=== PATIENT | female | born 1990 | race Caucasian/White ===

== ENCOUNTER 2016-11-08 19:26 | Emergency (ER) | payer OTHER ==
[~2016-11-08] VITALS: Ht 157.5 cm; Wt 93.0 kg
[2016-11-08 19:27] VITALS: BP 160/98; PULSE 118; RESP 15; TEMP 98.4; O2SAT 98
[2016-11-08] MEDS ORDERED: BENA25CA4 PO (22:11)
[2016-11-08 23:05] LABS: AUTOMATED NEUTROPHIL # 6.7 TH/MM3 (1.8-7.7); BASOPHIL % 0.4 % (0.0-2.0); EOSINOPHIL # 0.3 TH/MM3 (0-0.4); EOSINOPHIL % 2.9 % (0.0-4.0); HEMATOCRIT 36.1 % (35.0-46.0); HEMO FLAGS DIFF FINAL; LYMPH % 19.8 % (9.0-44.0); LYMPHOCYTE # 1.9 TH/MM3 (1.0-4.8); MEAN CELL VOLUME 78.1 FL (80.0-100.0); MEAN CORPUSCULAR HEMOGLOBIN 25.3 PG (27.0-34.0); MEAN CORPUSCULAR HGB CONC 32.4 % (32.0-36.0); MONO % 7.6 % (0.0-8.0); NEUT % 69.3 % (16.0-70.0); PLATELET COUNT 228 TH/MM3 (150-450); RED BLOOD COUNT 4.62 MIL/MM3 (4.00-5.30); RED CELL DISTRIBUTION WIDTH 13.9 % (11.6-17.2); WHITE BLOOD COUNT 9.6 TH/MM3 (4.0-11.0)
[2016-11-08 23:07] LABS: BACTERIA, URINE RARE /hpf; BLOOD, URINE SMALL (NEG); COMMENT (UR) CULTURE INDICATED; CULTURE IF INDICATED CULTURE INDICATED; GLUCOSE,URINE NEG (NEG); KETONE, URINE NEG (NEG); MUCUS URINE FEW /lpf (OCC); NITRITE,URINE NEG (NEG); SQUAMOUS EPITHELIAL CELL URINE 2 /hpf (0-5); URINE COLOR YELLOW (YELLW/STRAW)
--- NOTE | 2016-11-08 23:07 | PD ---
HPI Chief Complaint: Vending Route Servicer Problem/Complaint Time Seen by Provider: 22:35 Travel History International Travel<30 days: No Contact w/Intl Traveler<30days: No Traveled to known affect area: No History of Present Illness HPI 26-year-old female that presents to the ED for evaluation of with vaginal bleeding. Per patient she is about 7-9 weeks . Per patient since yesterday she noted some light bleeding but today became more severe. Per patient now is more spotting but she did have significantly and she was concerned. She denies any other vaginal discharge. This is her second . Only past surgery of the abdomen was her appendix. She denies any chest pain. She states having some lower pelvic pain which attributes to gas. She has no allergies to medication. She has not had an ultrasound as of yet. Per patient she just made an appointment with a doctor they won't see her until a week from today. She denies taking any medications. She denies possibility of STD. She states the discomfort is 4 out of 10. Does not radiate and stays mainly on the lower abdomen. No nausea or vomiting. PFSH Past Medical History Asthma: Yes Tetanus Vaccination: < 5 Years Influenza Vaccination: No ?: : 1 Para: 1 Past Surgical History Appendectomy: Yes Social History Alcohol Use: No Tobacco Use: No Substance Use: No Allergies-Medications (Allergen,Severity, Reaction): Coded Allergies: No Known Allergies (Verified Allergy, Unknown, 11/08/16) Reported Meds & Prescriptions Reported Meds & Active Scripts Active Reported Benadryl Allergy (Diphenhydramine HCl) 25 Mg Cap 25 Mg PO Review of Systems Except as stated in HPI: all other systems reviewed are Neg Physical Exam Narrative GENERAL: SKIN: Warm and dry. HEAD: Atraumatic. Normocephalic. EYES: Pupils equal and round. No scleral icterus. No injection or drainage. ENT: No nasal bleeding or discharge. Mucous membranes pink and moist. NECK: Trachea midline. No JVD. CARDIOVASCULAR: Regular rate and rhythm. RESPIRATORY: No accessory muscle use. Clear to auscultation. Breath sounds equal bilaterally. GASTROINTESTINAL: Abdomen soft, non-tender, nondistended. Hepatic and splenic margins not palpable. Pelvic exam: Done with female nurse present. Patient does have some slight edition initial discharge, from the clitoris were no obvious sign of bleeding. No sign of deformity noted. Cervix appears to be closed. No cervical motion tenderness. No adnexal tenderness. MUSCULOSKELETAL: Extremities without clubbing, cyanosis, or edema. No obvious deformities. Full range of motion of the upper and lower extremities bilaterally. 2+ pulses bilaterally. NEUROLOGICAL: Awake and alert. No obvious cranial nerve deficits. Motor grossly within normal limits. Five out of 5 muscle strength in the arms and legs. Normal speech. PSYCHIATRIC: Appropriate mood and affect; insight and judgment normal. Data Data Last Documented VS Vital Signs Date Time Temp Pulse Resp B/P (MAP) Pulse Ox O2 Delivery O2 Flow Rate FiO2 11/08/16 19:27 98.4 118 15 160/98 (118) 98 Room Air Orders Orders Beta Hcg (Quant/Titer) (11/08/16 22:39) Complete Blood Count With Diff (11/08/16 22:39) Basic Metabolic Panel (Bmp) (11/08/16 22:39) Type And Screen (11/08/16 22:39) Urinalysis - C+S If Indicated (11/08/16 22:39) Iv Access Insert/Monitor (11/08/16 22:39) Ed Urine Pregnancytest Poc (11/08/16 22:39) Us Pelvis (Ques Pr/Ect)W Trans (11/08/16 ) Wet Prep Profile (11/08/16 22:56) Labs Laboratory Tests Test 11/08/16 22:47 [facility] Medical Decision Making Medical Screen Exam Complete: Yes Emergency Medical Condition: Yes Medical Record Reviewed: Yes Differential Diagnosis Vaginal discharge versus vaginal bleeding versus miscarriage versus ectopic versus versus bleeding during Narrative Course 26-year-old female that presents to the ED for evaluation of vaginal bleeding and . Patient was properly examined and was found to have signs and symptoms concerning for possible miscarriage. On physical exam she does appear to have some discharge and this can be normal from her menses but will do wet prep as well as GC and chlamydia. Labs were drawn. Case will be signed out to my attending pending labs and disposition. Christopher Pelletier Nov 08, 2016 23:07
[2016-11-08 23:26] LABS: POTASSIUM 3.6 MEQ/L (3.5-5.1)
--- NOTE | 2016-11-08 23:36 | PD ---
Physical Exam Date Seen by Provider: Nov 08, 2016 Time Seen by Provider: 23:34 Narrative accepted in transfer of care Data Data Last Documented VS Vital Signs Date Time Temp Pulse Resp B/P (MAP) Pulse Ox O2 Delivery O2 Flow Rate FiO2 11/08/16 23:38 84 20 116/69 (85) 98 Room Air 11/08/16 19:27 98.4 Orders Orders Beta Hcg (Quant/Titer) (11/08/16 22:39) Complete Blood Count With Diff (11/08/16 22:39) Basic Metabolic Panel (Bmp) (11/08/16 22:39) Type And Screen (11/08/16 22:39) Urinalysis - C+S If Indicated (11/08/16 22:39) Iv Access Insert/Monitor (11/08/16 22:39) Ed Urine Pregnancytest Poc (11/08/16 22:39) Wet Prep Profile (11/08/16 22:56) Urine Culture (11/08/16 22:47) Gc And Chlamydia Pcr (11/08/16 23:14) Us Pelvis (Ques Preg/Ectopic) (11/08/16 ) Cephalexin (Keflex) (11/09/16 01:15) Labs Laboratory Tests Test 11/08/16 22:47 11/08/16 22:55 11/08/16 23:00 White Blood Count 9.6 TH/MM3 Red Blood Count 4.62 MIL/MM3 Hemoglobin 11.7 GM/DL Hematocrit 36.1 % Mean Corpuscular Volume 78.1 FL Mean Corpuscular Hemoglobin 25.3 PG Mean Corpuscular Hemoglobin Concent 32.4 % Red Cell Distribution Width 13.9 % Platelet Count 228 TH/MM3 Mean Platelet Volume 8.0 FL Neutrophils (%) (Auto) 69.3 % Lymphocytes (%) (Auto) 19.8 % Monocytes (%) (Auto) 7.6 % Eosinophils (%) (Auto) 2.9 % Basophils (%) (Auto) 0.4 % Neutrophils # (Auto) 6.7 TH/MM3 Lymphocytes # (Auto) 1.9 TH/MM3 Monocytes # (Auto) 0.7 TH/MM3 Eosinophils # (Auto) 0.3 TH/MM3 Basophils # (Auto) 0.0 TH/MM3 CBC Comment DIFF FINAL Differential Comment Urine Color YELLOW Urine Turbidity HAZY Urine pH 6.0 Urine Specific [place] 1.021 Urine Protein NEG mg/dL Urine Glucose (UA) NEG mg/dL Urine Ketones NEG mg/dL Urine Occult Blood SMALL Urine Nitrite NEG Urine Bilirubin NEG Urine Urobilinogen LESS THAN 2.0 MG/DL Urine Leukocyte Esterase LARGE Urine RBC 3 /hpf Urine WBC 24 /hpf Urine Squamous Epithelial Cells 2 /hpf Urine Amorphous Sediment RARE Urine Bacteria RARE /hpf Urine Mucus FEW /lpf Microscopic Urinalysis Comment CULTURE INDICATED Blood Urea Nitrogen 7 MG/DL Creatinine 0.58 MG/DL Random Glucose 95 MG/DL Calcium Level 9.2 MG/DL Sodium Level 135 MEQ/L Potassium Level 3.6 MEQ/L Chloride Level 103 MEQ/L Carbon Dioxide Level 25.0 MEQ/L Anion Gap 7 MEQ/L Estimat Glomerular Filtration Rate 126 ML/MIN Human Chorionic Gonadotropin, Quant 39781 MIU/ML Chlamydia trachomatis DNA (PCR) NOT DETECTED Neisseria gonorrhoeae DNA (PCR) NOT DETECTED Clue Cells (Wet Prep) NONE SEEN Vaginal Trichomonas (Wet Prep) NONE SEEN Vaginal Yeast (Wet Prep) NONE SEEN MDM Medical Record Reviewed: Yes Supervised Visit with CAMMY: Yes Interpretation(s) UA: Positive leukocyte Estrace positive white blood cells few bacteria culture indicated poc hcg: positive A(+) hc,112 CBC & BMP Diagram 11/08/16 22:47 Calcium Level 9.2 Last Impressions Pelvis Ultrasound 11/08/16 0000 Signed Impressions: Service Date/Time: Sunday, November 08, 2016 23:51 - CONCLUSION: 1. 7 week one day intrauterine gestation with heart rate of 137 beats per minute. 2. Corpus luteal cyst involving the left ovary. Pee Dunne Jr., MD Vital Signs Date Time Temp Pulse Resp B/P (MAP) Pulse Ox O2 Delivery O2 Flow Rate FiO2 11/08/16 23:38 84 20 116/69 (85) 98 Room Air 11/08/16 19:27 98.4 118 15 160/98 (118) 98 Room Air Differential Diagnosis Vaginal bleeding, threatened miscarriage, ectopic , UTI Narrative Course 26 year-old female presents to the emergency room with vaginal bleeding; pelvic exam pelvic exam performed by Thomas Burton. No active bleeding no blood clots no tissue greenish discharge cervical os closed Diagnosis Primary Impression: Vaginal bleeding before 22 weeks gestation Additional Impressions: Qualified Codes: Z3A.01 - Less than 8 weeks gestation of UTI (urinary tract infection) Referrals: Technology Instructor 2 days Patient Instructions: General Instructions Departure Forms: Tests/Procedures, Work Release Additional Instruction: Increase fluid hydration Follow-up with your [employer] Continue vitamins Recheck quantitative hormone level and 48 hours Complete course of antibiotic as prescribed May take as needed as tolerated acetaminophen/Tylenol for fever 100.4F or greater or for minor discomfort No work or lifting greater than 5 pounds 2 days Med/Other Pt SpecificInfo: Prescription(s) given Scripts Cephalexin (Keflex) 500 Mg Capsule 500 MG PO Q6H for Infection for 7 Days, #28 CAP 0 Refills Prov: Alayna Perez MD 11/09/16 Disposition: 01 DISCHARGE HOME Condition: Stable Alayna Perez MD Nov 08, 2016 23:36
[2016-11-08 23:38] VITALS: BP 116/69; PULSE 84; RESP 20; O2SAT 98
--- NOTE | 2016-11-09 00:44 | RADRPT ---
EXAM DATE/TIME: 11/08/2016 23:51 [facility] COMPARISON: No previous studies available for comparison. INDICATIONS : Ectopic. LAB(S): Beta-hC MEDICAL HISTORY : . Asthma. SURGICAL HISTORY : Appendectomy. ENCOUNTER: Initial ACUITY: 1 day PAIN SCORE: 0/10 LOCATION: Bilateral pelvis MEASUREMENTS: UTERUS: 9.4 x 6.1 x 4.8 cm ENDOMETRIAL STRIPE: 13 mm RIGHT OVARY: 3.1 x 2.6 x 1.8 cm LEFT OVARY: 3.1 x 3.4 x 2.0 cm FREE FLUID: No CROWN RUMP LENGTH: 1.0 cm = 7 WKS 1 DAYS FHR: 140 BPM FINDINGS: UTERUS: A solitary intrauterine gestation is observed. Age by crown-rump length is 7 weeks one day. hea rt rate is 137 beats per minute. A small subchorionic hemorrhage is seen. The myometrium is unremarka ble. A well-formed yolk sac and gestational sac noted. RIGHT OVARY: Ovary contains no mass or significant cystic lesion. LEFT OVARY: The left ovary contains a mildly complex cyst measuring 1.6 cm in size. MISCELLANEOUS: No free fluid. CONCLUSION: 1. 7 week one day intrauterine gestation with heart rate of 137 beats per minute. 2. Corpus luteal cyst involving the left ovary. Pee Dunne Jr., MD on November 09, 2016 at 0:40 Board Certified Radiologist. This report was verified electronically.
[2016-11-09 00:58] LABS: CHLAMYDIA PCR NOT DETECTED (NOT DETECT); NEISSERIA PCR NOT DETECTED (NOT DETECT)
[2016-11-09] MEDS ORDERED: CEPH-460 PO (01:15)
[2016-11-09] MEDS ORDERED: CEPHALEXIN MONOHYDRATE 500 MG CAP PO ONE (01:15)
[2016-11-15] MEDS ORDERED: PREN1CHW7 PO (15:36)
[2016-11-16] MEDS ORDERED: ONDA4TAB7 SL (13:11)
[2016-11-21] MEDS ORDERED: METR500T10 PO (14:50)
[2016-12-13] MEDS ORDERED: ONDA4TAB7 SL (11:20)
== END 2016-11-09 01:32 | disposition home or self-care (01) ==
LOC: NEPC 19:26
DX: O20.9 Hemorrhage in early pregnancy, unspecified (principal); O23.41 Unspecified infection of urinary tract in pregnancy, first trimester; B96.89 Other specified bacterial agents as the cause of diseases classified elsewhere; Z3A.01 Less than 8 weeks gestation of pregnancy
CPT/HCPCS: 76700; 80048; 81001; 84702; 84703; 85025; 86850; 86900; 86901; 87086; 87210; 87491; 87591; 99284

== ENCOUNTER → 2017-05-21 | Outpatient (CLI) | payer OTHER ==
[~2017-05-21] MED LIST: ALBUAER3 INH; BENA25CA4 PO; ONDA4TAB7 SL; PREN1CHW7 PO; ZANT150T2 PO
== END ==
LOC: HPND 09:50
PROVIDERS: ATTEND Obstetrics & Gynecology
DX: O24.410 Gestational diabetes mellitus in pregnancy, diet controlled (principal); O36.63X0 Maternal care for excessive fetal growth, third trimester, not applicable or unspecified; O99.213 Obesity complicating pregnancy, third trimester; E66.09 Other obesity due to excess calories; Z68.39 Body mass index [BMI] 39.0-39.9, adult
CPT/HCPCS: 76816

== ENCOUNTER 2017-06-15 10:33 | Inpatient (IN) | payer OTHER ==
[2017-06-15] VITALS (82 sets, daily range): BP systolic 87–145; BP diastolic 53–88; PULSE 72–116; RESP 16–18; TEMP 97.9–98.5; O2SAT 94–100
[2017-06-15] MEDS ORDERED: LACTATED RINGER'S 1000 ML INJ 1,000 ML IV SCH ×2 (11:34→23:37)
[2017-06-15] MEDS ORDERED: LACTATED RINGER'S 1000 ML INJ 1,000 ML IV PRN (11:34)
[2017-06-15] MEDS ORDERED: ONDANSETRON HCL 4 MG/2 ML VIAL IV PUSH PRN (11:45)
[2017-06-15] MEDS ORDERED: MINERAL OIL 10 ML VIAL TOPICAL PRN (11:45)
[2017-06-15] MEDS ORDERED: LIDOCAINE HCL 1% 50 ML VIAL INFIL PRN (11:45)
[2017-06-15] MEDS ORDERED: OXYTOCIN 30 UNITS-500ML PREMIX 500 ML IV ONE (11:45)
[2017-06-15] MEDS ORDERED: SODIUM CHLORID 0.9% 500 ML INJ 500 ML IV PRN (11:45)
[2017-06-15] MEDS ORDERED: CITRIC ACID-SODIUM CITRATE LIQ 30 ML UDC PO SCH (11:45)
[2017-06-15] MEDS ORDERED: LIDOCAINE HCL 1% 50 ML VIAL I-DERMAL PRN (11:45)
--- NOTE | 2017-06-15 11:47 | HHI.HP ---
History & Physical H&P OB ED Note (Detail) Patient Name: Malissa Barker Unit Number: [id number] Date of : 1990 Patient Status: Registered Emergency Room Attending Doctor: Dean Galindo MD HPI HPI Travel History International Travel<30 Days: No Contact w/Intl Traveler<30Days: No History of Present Illness HPI 27-year-old female 001 at 38/3 of asthma and gestational diabetes controlled with diet presents to the ED with leakage of fluid. She is a patient of [facility]. She reports that she had a gush of fluid at 9:30 AM this morning. She started to feel some contractions but not sure how far apart they were. Endorses good movement. She denies vaginal bleeding, chest pain, shortness of breath. She reports that she uses her albuterol oral inhaler as needed, she states that she uses it over 14 times per month. She reports that her last was vacuum-assisted. Her last child was over 9 pounds. She had an ultrasound 1 week ago and the baby was measuring about 9 pounds. She is requesting that we do not do vacuum-assisted at this delivery. She is okay to have a if needed. GBS negative History (Limited) History Past Medical History Narrative Medical Asthma, takes albuterol as needed Gestational diabetes controlled with diet Obstetric History Obstetric History 001, vacuum-assisted vaginal delivery Past Surgical History Narrative Surgical Appendectomy Family History Family History: Negative Social History Alcohol Use: No Tobacco Use: No Substance Abuse: No Allergies-Medications Allergies-Medications (Allergen,Severity, Reaction): Coded Allergies: No Known Allergies (Verified , 03/07/17) Home Meds Active Scripts Ondansetron Odt (Ondansetron Odt) 4 Mg Tab, 4 MG SL TID Y for Nausea/Vomiting, # 30 TAB 0 Refills Prov:Frida Herbert 03/07/17 Ranitidine (Zantac) 150 Mg Tab, 150 MG PO BID for Reduce Stomach Acid, #60 TAB 7 Refills Prov:Frida Herbert 02/06/17 Albuterol 8.5 GM Inh (Proair Hfa 8.5 GM Inh) 90 Mcg/Act Aer, 2 PUFF INH Q4-6H Y for SHORTNESS OF BREATH, #1 INHALER 1 Refill 108 mcg/actuation Prov:Hadley Gonzalezinta JanelKaren JOHNS [facility] 01/09/17 Vit W/ Ferric Phospha (Vitafol Gummies 3.33-0.333-34.8 mg) 1 Chw Chw, 3 TAB PO DAILY, #90 BOTTLE 11 Refills Prov:Frida Herbert [facility] 11/15/16 Reported Medications Diphenhydramine HCl (Benadryl Allergy) 25 Mg Cap, 25 MG PO 11/08/16 ROS Review of Systems Except as stated in HPI: all other systems reviewed are Neg Physical Exam Physical Exam Narrative GENERAL: Well-nourished, well-developed patient. SKIN: Warm and dry. HEAD: Normocephalic and atraumatic. EYES: No scleral icterus. No injection or drainage. ENT: No nasal drainage noted. Mucous membranes pink. Airway patent. NECK: Supple, trachea midline. No JVD. CARDIOVASCULAR: Regular rate and rhythm without murmurs, gallops, or rubs. RESPIRATORY: Breath sounds equal bilaterally. No accessory muscle use. ABDOMEN/GI: Abdomen soft, non-tender, bowel sounds present, no rebound, no guarding GENITOURINARY: Cervix: midposition Dilatation: 3 Effacement: 20 Station: -2 Presentation: - Membranes: ruptured Uterine Contractions: every 5 min FHT's: Category: 1 Baseline: 130s Reactive: yes Variability: moderate Decels: none EXTREMITIES: No cyanosis or edema. BACK: Nontender without obvious deformity. NEUROLOGICAL: Awake and alert. Motor and sensory grossly within normal limits. Five out of 5 muscle strength in all muscle groups. Normal speech. Data Data Data Vital Signs Reviewed: Yes Orders Orders Ob (2e) Additional Admit Info (06/15/17 11:31) Admit To Inpatient (06/15/17 ) Code Status (06/15/17 11:34) Vital Signs (Adult) .Per protocol (06/15/17 11:34) Activity Oob Ad Celi (06/15/17 11:34) Heart (06/15/17 11:34) Amnioinfusion (06/15/17 11:34) Urinary Catheter Management .ONCE (06/15/17 11:34) Diet Liquid (06/15/17 Lunch) Lactated Ringer's 1000 Ml Inj (Lr 1000 M (06/15/17 11:34) Lactated Ringer's 1000 Ml Inj (Lr 1000 M (06/15/17 11:34) Sodium Chlorid 0.9% 500 Ml Inj (Ns 500 M (06/15/17 11:45) Sodium Chlor 0.9% 1000 Ml Inj (Ns 1000 M (06/15/17 11:54) Lidocaine 1% Inj (50 Ml) (Xylocaine 1% I (06/15/17 11:45) Citric Acid-Sodium Citrate Liq (Bicitra (06/15/17 11:45) Ondansetron Inj (Zofran Inj) (06/15/17 11:45) Fentanyl Inj (Fentanyl Inj) (06/15/17 11:45) Fentanyl Inj (Fentanyl Inj) (06/15/17 11:45) Complete Blood Count With Diff (06/15/17 11:34) Hold Clot (06/15/17 11:34) Abo/Rh Blood Type (06/15/17 11:34) Urinalysis - C+S If Indicated (06/15/17 11:34) Drug Screen, Random Urine (06/15/17 11:34) Ob/Psych Drug Screen, Urine (06/15/17 11:34) Resp Oxygen Non Rebreathe Mask (06/15/17 ) ^ Epidural / Intrathecal Infus (06/15/17 11:34) Oxytocin 30 Units-500ml Premix (Pitocin (06/15/17 11:45) Lidocaine 1% Inj (50 Ml) (Xylocaine 1% I (06/15/17 11:45) Light Mineral Oil (Muri-Lube Oil) (06/15/17 11:45) Inpatient Certification (06/15/17 ) Group B Strep: Negative MDM MDM Plan 27-year-old female at 38/3 weeks presents for leakage of fluid. -Intrauterine category 1, reassuring -Cervix: 3 cm, 20% effacement, -2, mid position -History of gestational diabetes controlled with diet -History of asthma, uses albuterol inhaler inhaler 14 times per month - labs obtained: Rubella equivocal, patient will need MMR after delivery -GBS negative -Will start Pitocin 1-1-30 -Admit to L&D sdw Daisha Yao MD R1 Jun 15, 2017 11:46 (Daisha Navas MD R1) H&P Patient seen and evaluated with resident under direct supervision, agree with assessment and plan. (Dean Galindo MD) Daisha Navas MD R1 Jun 15, 2017 11:47 Dean Galindo MD Jun 15, 2017 12:59
[2017-06-15] MEDS ORDERED: SODIUM CHLOR 0.9% 1000 ML INJ 1,000 ML IV PRN (11:54)
[2017-06-15] MEDS ORDERED: OXYTOCIN 30 UNITS-500ML PREMIX 500 ML IV PRN (12:00)
[2017-06-15 12:20] LABS: BASOPHIL % 0.5 % (0.0-2.0); EOSINOPHIL % 0.6 % (0.0-4.0); HEMOGLOBIN 8.6 GM/DL (11.6-15.3); LYMPH % 16.5 % (9.0-44.0); LYMPHOCYTE # 1.1 TH/MM3 (1.0-4.8); MEAN CELL VOLUME 63.9 FL (80.0-100.0); MEAN CORPUSCULAR HEMOGLOBIN 21.1 PG (27.0-34.0); MEAN CORPUSCULAR HGB CONC 33.1 % (32.0-36.0); MEAN PLATELET VOLUME 7.8 FL (7.0-11.0); MONO % 8.1 % (0.0-8.0); MONOCYTE # 0.5 TH/MM3 (0-0.9); NEUT % 74.3 % (16.0-70.0); PLATELET COUNT 235 TH/MM3 (150-450); RED BLOOD COUNT 4.06 MIL/MM3 (4.00-5.30); RED CELL DISTRIBUTION WIDTH 17.5 % (11.6-17.2); WHITE BLOOD COUNT 6.7 TH/MM3 (4.0-11.0)
[2017-06-15 12:38] LABS: BACTERIA, URINE OCC /hpf; BILIRUBIN, URINE NEG (NEG); BLOOD, URINE SMALL (NEG); GLUCOSE,URINE NEG (NEG); KETONE, URINE NEG (NEG); MUCUS URINE FEW /lpf (OCC); NITRITE,URINE NEG (NEG); SQUAMOUS EPITHELIAL CELL URINE 10 /hpf (0-5); URINE COLOR YELLOW (YELLW/STRAW); URINE LEUKOCYTE ESTERASE MOD (NEG)
[2017-06-15] MEDS ORDERED: fentaNYL 2MCG-BUPIV 0.125% INJ 100 ML ONE (17:02)
[2017-06-15] MEDS ORDERED: ePHEDrine/NS 25 MG/5 ML SYRINGE ONE (17:02)
--- NOTE | 2017-06-15 17:13 | PD.LABORPN ---
Subjective Subjective Notes increased ctxs. Desires epidural. Objective Vital Signs Vital Signs Date Time Temp Pulse Resp B/P (MAP) Pulse Ox O2 Delivery O2 Flow Rate FiO2 06/15/17 15:27 98.5 16 06/15/17 15:16 100 103/75 (84) 06/15/17 15:00 88 115/72 (86) 06/15/17 14:52 82 121/70 (87) 06/15/17 14:00 16 06/15/17 14:00 87 120/67 (84) 06/15/17 13:45 96 117/68 (84) 06/15/17 13:30 88 118/77 (91) 06/15/17 13:15 81 116/61 (79) 06/15/17 13:00 85 114/71 (85) 06/15/17 12:45 92 121/68 (85) 06/15/17 12:30 90 117/74 (88) 06/15/17 12:28 93 122/73 (89) 06/15/17 11:59 98.1 06/15/17 11:58 18 Objective Pelvic Exam: Cervix: [-] Dilatation: [4-] Effacement: [80-] Station: [-3-] Presentation: [-vtx] Membranes: [ ruptured] Uterine Contractions: [irreg-] FHT's: Category: [1-] Baseline: [-] Reactive: [-] Variability: [-] Decels: [-] Gest Age Assessed Date: Jun 15, 2017 Gest Age Assessed Time: 11:13 Artificial rupture of membrane: No Assessment/Plan Assessment and Plan A: latent labor P: continue pit augment. epidural Dean Galindo MD Jun 15, 2017 17:13
[2017-06-15] MEDS ORDERED: LIDOCAINE HCL 1% PF 5 ML AMPULE ONE ×2 (17:25→20:06)
[2017-06-15] MEDS ORDERED: LIDOCAINE 1.5%/EPINEPHrine 1:200,000 PF SOLN 10ML SDV ONE (17:28)
[2017-06-15] MEDS ORDERED: ePHEDrine/NS 25 MG/5 ML SYRINGE IV PUSH PRN (19:30)
[2017-06-15] MEDS ORDERED: DO NOT ADMINISTER ANTICOAGULANTS PRN (19:30)
[2017-06-15] MEDS ORDERED: fentaNYL 2MCG-BUPIV 0.125% 100 ML EPIDURAL PRN (19:30)
[2017-06-15] MEDS ORDERED: NO SYSTEM NARCOTICS PRN (19:30)
[2017-06-15] MEDS ORDERED: LACTATED RINGER'S 1000 ML INJ 1,000 ML IV ONE (23:07)
[2017-06-15] MEDS ORDERED: ceFAZolin 2 GM PREMIX 50 ML ONE (23:09)
--- NOTE | 2017-06-15 23:15 | PD.LABORPN ---
Subjective Subjective Patient expresses that she is exhausted. She desires . Objective Vital Signs Vital Signs Date Time Temp Pulse Resp B/P (MAP) Pulse Ox O2 Delivery O2 Flow Rate FiO2 06/15/17 21:55 116 06/15/17 21:50 110 06/15/17 21:45 109 06/15/17 21:45 95 108/63 (78) 06/15/17 21:40 105 06/15/17 21:35 92 06/15/17 21:30 92 06/15/17 21:30 87 115/74 (88) 06/15/17 21:15 93 06/15/17 20:15 86 06/15/17 20:00 91 06/15/17 19:55 86 100 06/15/17 19:50 100 06/15/17 19:50 87 06/15/17 19:47 97.9 18 06/15/17 19:45 85 104/63 (77) 06/15/17 19:45 100 06/15/17 19:40 83 100 06/15/17 19:35 84 100 06/15/17 19:30 91 06/15/17 19:30 90 100 06/15/17 18:55 83 06/15/17 18:55 99/64 (76) 100 06/15/17 18:50 113/66 (82) 100 06/15/17 18:50 83 06/15/17 18:45 108/68 (81) 100 06/15/17 18:45 84 06/15/17 18:40 83 06/15/17 18:40 103/53 (70) 100 06/15/17 18:36 85 105/55 (72) 06/15/17 18:35 83 100 06/15/17 18:30 86 06/15/17 18:30 123/72 (89) 100 06/15/17 18:25 83 06/15/17 18:25 111/60 (77) 06/15/17 18:25 100 06/15/17 18:21 78 06/15/17 18:21 100/58 (72) 06/15/17 18:20 78 100 06/15/17 18:15 109/56 (73) 06/15/17 18:15 100 06/15/17 18:15 84 06/15/17 18:10 100 06/15/17 18:10 88 06/15/17 18:10 104/70 (81) 06/15/17 18:06 87/70 (76) 06/15/17 18:06 100 06/15/17 18:05 86 100 06/15/17 18:04 88 06/15/17 18:04 110/66 (81) 06/15/17 18:00 99 06/15/17 18:00 100 06/15/17 18:00 115/74 (88) 06/15/17 17:49 83 121/57 (78) 06/15/17 17:45 82 06/15/17 17:40 78 06/15/17 17:35 84 06/15/17 17:31 86 131/62 (85) 06/15/17 17:16 72 112/73 (86) 06/15/17 17:01 79 114/67 (83) 06/15/17 16:46 137/88 (104) 06/15/17 16:30 79 110/70 (83) 06/15/17 16:16 77 112/67 (82) 06/15/17 16:00 100 107/64 (78) 06/15/17 15:27 98.5 16 06/15/17 15:16 100 103/75 (84) Objective Pelvic Exam: Cervix: [-] Dilatation: [Complete] Effacement: [-100] Station: [-0] Presentation: [Vertex-] Membranes: [ruptured] Uterine Contractions: [-Adequate] FHT's: Category: [-2] Baseline: [-] Reactive: [-] Variability: [Moderate-] Decels: [-Variable] Gest Age Assessed Date: Jun 15, 2017 Gest Age Assessed Time: 11:13 Artificial rupture of membrane: No Assessment/Plan Assessment and Plan Assessment: Arrest of second stage labor, suspected macrosomia Plan: I discussed with patient the options of continuing her efforts at expulsion versus attempted operative vaginal delivery versus . She declines further maternal effort. She declines operative vaginal delivery and desires . Dean Galindo MD Jun 15, 2017 23:15
[2017-06-16] VITALS (13 sets, daily range): BP systolic 97–118; BP diastolic 55–68; PULSE 72–98; RESP 9–18; TEMP 97.7–98.9; O2SAT 96–99
[2017-06-16] MEDS ORDERED: ceFAZolin 2 GM PREMIX 50 ML IV SCH (00:15)
--- NOTE | 2017-06-16 00:31 | PD.OP ---
Operative Report Date of Surgery: Jun 16, 2017 Preoperative Diagnosis: arrest of second stage of labor, suspected macrosomia Postoperative Diagnosis: Same plus macrosomia Procedure: Primary lower uterine segment transverse section Patient was taken to the operating room after administration of a satisfactory level of her labor epidural was prepped and draped in dorsal supine position. The skin was incised transversely in the lower abdomen and the subcutaneous tissue was sharply dissected down to the level of the fascia which was nicked in midline extended bilaterally with scissors. Fascia was opened transversely and from the underlying muscle with sharp and blunt dissection. Peritoneum was bluntly entered. A transverse hysterotomy was made in the lower uterine segment. membranes were encountered and clear fluid noted. The vertex was elevated out of the pelvic inlet and delivered through the hysterotomy. With gentle traction and fundal pressure the remainder of the followed easily. Delayed cord clamping was accomplished. Cord blood sample was obtained. The baby was passed to the waiting attendants. The fundus was massaged and placenta passed spontaneously. The uterine cavity was wiped with a moist sponge. The hysterotomy was closed with the running suture of 0 Monocryl. Interrupted sutures were used as a second layer. After observing excellent hemostasis the posterior cul-de-sac and pericolic gutters were evacuated of fluid and blood. The fascia was then closed with #1 PDS. Subcutaneous tissue was closed with 3-0 Vicryl and the skin with 4-0 Vicryl suture and tissue glue. Anesthesia: Epidural Surgeon: Dean Galindo Manager Bar(s): Airam Schulz Operation and Findings: Normal-appearing tubes ovaries and uterus. 10 lbs. 7 oz. male infant 700 cc estimated blood loss No complications Sponge and instrument counts were correct 3 Dean Galindo MD Jun 16, 2017 00:31
[2017-06-16] MEDS ORDERED: KETOROLAC TROMETHAMINE 30 MG/ML (IVP) VIAL ONE (00:32)
[2017-06-16] MEDS ORDERED: CITRIC ACID-SODIUM CITRATE LIQ 30 ML UDC PO SCH (00:45)
[2017-06-16] MEDS ORDERED: ACETAMINOPHEN 1000 MG/100 ML 100 ML IV SCH (07:30)
[2017-06-16] MEDS ORDERED: OXYTOCIN 30 UNITS-500ML PREMIX 500 ML IV ONE (07:30)
[2017-06-16] MEDS ORDERED: ONDANSETRON HCL 4 MG/2 ML VIAL IV PUSH PRN (07:30)
[2017-06-16] MEDS ORDERED: SODIUM CHLORIDE 0.9% FLUSH 10 ML FLUSH IV FLUSH PRN (07:30)
--- NOTE | 2017-06-16 08:33 | HHI.OB ---
Subjective Post Operative Day: 1 Remarks Pt seen and examined this morning. day # 1 AFVSS overnight. Incision not draining. Decreased lochia. Denies dysuria. No breast tenderness. She is feeding the baby via breast. Appetite good. No nausea or vomiting. Patient has not yet had a bowel movement, but does endorse bowel gas. Ambulating well. Denies calf pain or shortness of breath. Otherwise, she is doing well this morning and has no other concerns. (Ziyad Leach MD R2) Remarks Patient seen and evaluated with resident under direct supervision, agree with assessment and plan. (Dean Galindo MD) Objective Vitals/I&O Vital Signs Date Time Temp Pulse Resp B/P (MAP) Pulse Ox O2 Delivery O2 Flow Rate FiO2 06/16/17 08:00 97.7 87 18 107/59 (75) 98 06/16/17 06:24 18 06/16/17 06:24 98.3 81 9 101/58 (72) 98 06/16/17 02:03 97.8 87 18 108/68 (81) 97 06/16/17 01:29 86 118/64 (82) 06/16/17 01:29 18 98 06/16/17 01:22 98.0 06/16/17 01:18 17 98 06/16/17 01:17 86 116/68 (84) 06/16/17 01:05 85 18 110/62 (78) 98 06/16/17 00:41 90 107/55 (72) 06/16/17 00:41 18 99 06/16/17 00:40 97.7 06/15/17 23:15 100 100 06/15/17 23:10 98 100 06/15/17 23:05 101 100 06/15/17 23:00 101 100 06/15/17 22:58 100 122/76 (91) 06/15/17 22:50 102 100 06/15/17 22:40 113 100 06/15/17 22:35 102 100 06/15/17 22:30 115 100 06/15/17 22:25 104 100 06/15/17 22:20 105 100 06/15/17 22:15 102 100 06/15/17 22:10 103 100 06/15/17 22:05 93 94 06/15/17 22:00 101 100 06/15/17 21:55 100 18 21:55 116 06/15/17 21:50 110 18 21:50 100 18 21:45 109 18 21:45 95 108/63 (78) 06/15/17 21:45 100 06/15/17 21:40 100 18 21:40 105 06/15/17 21:35 99 06/15/17 21:35 92 06/15/17 21:30 92 06/15/17 21:30 87 115/74 (88) 06/15/17 21:30 100 06/15/17 21:25 100 06/15/17 21:15 108/74 (85) 06/15/17 21:15 93 06/15/17 21:15 100 06/15/17 21:10 95 06/15/17 21:10 100 06/15/17 21:01 89 118/71 (87) 06/15/17 20:46 103 145/80 (101) 06/15/17 20:35 100 06/15/17 20:35 84 06/15/17 20:31 98.1 92 115/60 (78) 06/15/17 20:25 86 100 06/15/17 20:20 90 06/15/17 20:20 100 06/15/17 20:15 100 06/15/17 20:15 86 06/15/17 20:15 117/70 (86) 06/15/17 20:10 100 06/15/17 20:10 84 06/15/17 20:05 104 06/15/17 20:05 98 06/15/17 20:00 91 06/15/17 20:00 113/68 (83) 06/15/17 20:00 100 18 19:55 86 100 06/15/17 19:50 100 18 19:50 87 06/15/17 19:47 97.9 18 06/15/17 19:45 85 104/63 (77) 06/15/17 19:45 100 18 19:40 83 100 18 19:35 84 100 18 19:30 91 06/15/17 19:30 90 100 4/27/18 18:55 83 06/15/17 18:55 99/64 (76) 100 18 18:50 113/66 (82) 100 18 18:50 83 18 18:45 108/68 (81) 100 18 18:45 84 06/15/17 18:40 83 18 18:40 103/53 (70) 100 06/15/17 18:36 85 105/55 (72) 06/15/17 18:35 83 100 18 18:30 86 06/15/17 18:30 123/72 (89) 100 06/15/17 18:25 83 06/15/17 18:25 111/60 (77) 06/15/17 18:25 100 06/15/17 18:21 78 06/15/17 18:21 100/58 (72) 06/15/17 18:20 78 100 06/15/17 18:15 109/56 (73) 06/15/17 18:15 100 06/15/17 18:15 84 06/15/17 18:10 100 06/15/17 18:10 88 06/15/17 18:10 104/70 (81) 06/15/17 18:06 87/70 (76) 06/15/17 18:06 100 06/15/17 18:05 86 100 06/15/17 18:04 88 06/15/17 18:04 110/66 (81) 06/15/17 18:00 99 06/15/17 18:00 100 06/15/17 18:00 115/74 (88) 06/15/17 17:49 83 121/57 (78) 06/15/17 17:45 82 06/15/17 17:40 78 06/15/17 17:35 84 06/15/17 17:31 86 131/62 (85) 06/15/17 17:16 72 112/73 (86) 06/15/17 17:01 79 114/67 (83) 18 16:46 137/88 (104) 06/15/17 16:30 79 110/70 (83) 06/15/17 16:16 77 112/67 (82) 06/15/17 16:00 100 107/64 (78) 06/15/17 15:27 98.5 16 06/15/17 15:16 100 103/75 (84) 06/15/17 15:00 88 115/72 (86) 06/15/17 14:52 82 121/70 (87) 06/15/17 14:00 16 06/15/17 14:00 87 120/67 (84) 06/15/17 13:45 96 117/68 (84) 06/15/17 13:30 88 118/77 (91) 06/15/17 13:15 81 116/61 (79) 06/15/17 13:00 85 114/71 (85) 06/15/17 12:45 92 121/68 (85) 06/15/17 12:30 90 117/74 (88) 06/15/17 12:28 93 122/73 (89) 06/15/17 11:59 98.1 06/15/17 11:58 18 (Ziyad Leach MD R2) Result Diagram: 06/15/17 1205 Objective Remarks GENERAL: Well-nourished, well-developed patient. CARDIOVASCULAR: Regular rate and rhythm without murmurs, gallops, or rubs. RESPIRATORY: Breath sounds equal bilaterally. No accessory muscle use. ABDOMEN/GI: Abdomen soft, non-tender, bowel sounds present. Incision: Clean, dry and intact. Fundus: Firm, non-tender at umbilicus. GENITOURINARY: Light to moderate bleeding. EXTREMITIES: No cyanosis or edema, non-tender, without signs of DVT. Medications and IVs Current Medications Medications (Trade) Dose Ordered Sig/Elayne Route Start Time Stop Time Status Last Admin (Xylocaine 1% Inj (50 ml)) 0.1 ml UNSCH X1 PRN I-DERMAL 06/15/17 11:45 06/18/17 11:44 (Bicitra Liq) 30 ml TABLET MAKING MACHINE OPERATOR HELPER PO 06/15/17 11:45 06/19/17 11:44 (Xylocaine 1% Inj (50 ml)) 10 ml UNSCH X1 PRN INFIL 06/15/17 11:45 06/17/17 11:44 (Muri-Lube Oil) 10 ml UNSCH PRN TOPICAL 06/15/17 11:45 ([facility] Nursing Information) No systemic narcotics to be given except... UNSCH PRN .XX 06/15/17 19:30 06/16/17 19:29 ([facility] Nursing Information) DO NOT ADMINISTER ANY ANTICOAGUL... UNSCH PRN .XX 06/15/17 19:30 06/16/17 19:29 Fentanyl/ Bupivacaine HCl 100 ml @ 0 mls/hr TITRATE PRN EPIDURAL 06/15/17 19:30 (ePHEDrine/NS 25 MG/5 ML SYR) 10 mg UNSCH PRN IV PUSH 06/15/17 19:30 06/16/17 19:29 Cefazolin Sodium/ Dextrose 50 ml @ 100 mls/hr TABLET MAKING MACHINE OPERATOR HELPER IV 06/16/17 00:15 06/20/17 00:14 (Bicitra Liq) 30 ml TABLET MAKING MACHINE OPERATOR HELPER PO 06/16/17 00:45 06/20/17 00:44 Lactated Ringer's 1,000 ml @ 100 mls/hr Q10H IV 06/16/17 12:30 06/17/17 08:29 Oxytocin 500 ml @ 100 mls/hr ONCE ONCE IV 06/16/17 07:30 06/16/17 12:29 Oxytocin 500 ml @ 100 mls/hr UNSCH X1 PRN IV 06/16/17 12:30 06/17/17 12:29 (NS Flush) 2 ml BID IV FLUSH 06/16/17 09:00 (NS Flush) 2 ml UNSCH PRN IV FLUSH 06/16/17 07:30 Acetaminophen 100 ml @ 400 mls/hr ONCE IV 06/16/17 07:30 06/18/17 07:44 (Motrin) 600 mg Q6H PRN PO 06/16/17 07:30 (Percocet 5-325 Mg) 1 tab Q4H PRN PO 06/16/17 07:30 (Percocet 5-325 Mg) 2 tab Q4H PRN PO 06/16/17 07:30 (M-M-R Ii Inj) 0.5 ml ONCE ONCE SQ 06/17/17 16:00 06/17/17 16:01 (Boostrix Inj) 0.5 ml ONCE ONCE IM 06/17/17 16:00 06/17/17 16:01 (Zofran Inj) 4 mg Q6H PRN IV PUSH 06/16/17 07:30 (Ziyad Leach MD R2) Assessment/Plan Problem List: (1) Single delivery by section ICD Codes: O82 - Encounter for delivery without indication Status: Acute Assessment and Plan 27 y/o female who is day # 1 s/p . -Continue routine care. -Percocet and Motrin PRN pain. -Encouraged OOB. Advised pelvic rest for 6 wks. Will need follow-up appointment for incision check in 1 week. -Re: ctrl, she would like to discuss her options at her follow-up appointment. -Anticipate discharge in 1-2 days. lux Galindo MD Discharge Planning 1-2 days (Ziyad Leach MD R2) Ziyad Leach MD R2 Jun 16, 2017 08:33 Dean Galindo MD Jun 16, 2017 09:49
[2017-06-16] MEDS ORDERED: SODIUM CHLORIDE 0.9% FLUSH 10 ML FLUSH IV FLUSH SCH (09:00)
[2017-06-16] MEDS ORDERED: PHENYLEPH/NS 1000 MCG/10 ML SYR IV ONE (12:00)
[2017-06-16] MEDS ORDERED: OXYTOCIN 10 UNIT/ML AMP IV ONE (12:00)
[2017-06-16] MEDS ORDERED: PROPOFOL 200 MG/20 ML AMP IV ONE (12:00)
[2017-06-16] MEDS ORDERED: LACTATED RINGER'S 1000 ML INJ 1,000 ML IV ONE (12:00)
[2017-06-16] MEDS ORDERED: LIDOCAINE 2%/EPINEPHrine PF 1:200,000 20ML SDV OTHER ONE (12:00)
[2017-06-16] MEDS ORDERED: ePHEDrine/NS 25 MG/5 ML SYRINGE IV ONE (12:00)
[2017-06-16] MEDS ORDERED: ONDANSETRON HCL 4 MG/2 ML VIAL IV ONE (12:00)
[2017-06-16] MEDS ORDERED: OXYTOCIN 30 UNITS-500ML PREMIX 500 ML IV PRN (12:30)
[2017-06-16] MEDS ORDERED: LACTATED RINGER'S 1000 ML INJ 1,000 ML IV SCH (12:30)
[2017-06-16] MEDS: IBUPROFEN 600 MG TAB PO PRN (15:34)
[2017-06-17] MEDS: oxyCODONE/ACETAMINOPHEN 5 MG/325 MG TAB PO PRN ×5 (00:39→22:38)
[2017-06-17] MEDS: IBUPROFEN 600 MG TAB PO PRN ×4 (00:39→22:39)
--- NOTE | 2017-06-17 06:03 | HHI.OB ---
Subjective Post Operative Day: 2 Remarks Pt seen and examined this morning. Postoperative day #2 AFVSS overnight. Decreased lochia. Denies dysuria. No breast tenderness. She is feeding the baby via breast. Appetite good. No nausea or vomiting. Patient has had a bowel movement and continues to pass bowel gas. Ambulating well. Denies calf pain or shortness of breath. Otherwise, she is doing well this morning and has no other concerns. Objective Vitals/I&O Vital Signs Date Time Temp Pulse Resp B/P (MAP) Pulse Ox O2 Delivery O2 Flow Rate FiO2 06/16/17 20:00 98.0 72 18 102/61 (75) 96 06/16/17 15:15 98.9 98 18 113/64 (80) 06/16/17 11:28 98.1 90 16 97/67 (77) 06/16/17 08:00 97.7 87 18 107/59 (75) 98 06/16/17 06:24 18 06/16/17 06:24 98.3 81 9 101/58 (72) 98 Result Diagram: 06/15/17 1205 Objective Remarks GENERAL: Well-nourished, well-developed patient. CARDIOVASCULAR: Regular rate and rhythm without murmurs, gallops, or rubs. RESPIRATORY: Breath sounds equal bilaterally. No accessory muscle use. ABDOMEN/GI: Abdomen soft, non-tender, bowel sounds present. Incision: Clean, dry and intact. Fundus: Firm, non-tender at umbilicus. GENITOURINARY: Light to moderate bleeding. EXTREMITIES: No cyanosis or edema, non-tender, without signs of DVT. Medications and IVs Current Medications Medications (Trade) Dose Ordered Sig/Elayne Route Start Time Stop Time Status Last Admin (Xylocaine 1% Inj (50 ml)) 0.1 ml UNSCH X1 PRN I-DERMAL 06/15/17 11:45 06/18/17 11:44 (Bicitra Liq) 30 ml PULP BLEACHER PO 06/15/17 11:45 06/19/17 11:44 (Xylocaine 1% Inj (50 ml)) 10 ml UNSCH X1 PRN INFIL 06/15/17 11:45 06/17/17 11:44 (Muri-Lube Oil) 10 ml UNSCH PRN TOPICAL 06/15/17 11:45 Fentanyl/ Bupivacaine HCl 100 ml @ 0 mls/hr TITRATE PRN EPIDURAL 06/15/17 19:30 Cefazolin Sodium/ Dextrose 50 ml @ 100 mls/hr PULP BLEACHER IV 06/16/17 00:15 06/20/17 00:14 (Bicitra Liq) 30 ml PULP BLEACHER PO 06/16/17 00:45 06/20/17 00:44 Lactated Ringer's 1,000 ml @ 100 mls/hr Q10H IV 06/16/17 12:30 06/17/17 08:29 Oxytocin 500 ml @ 100 mls/hr UNSCH X1 PRN IV 06/16/17 12:30 06/17/17 12:29 (NS Flush) 2 ml BID IV FLUSH 06/16/17 09:00 (NS Flush) 2 ml UNSCH PRN IV FLUSH 06/16/17 07:30 Acetaminophen 100 ml @ 400 mls/hr ONCE IV 06/16/17 07:30 06/18/17 07:44 (Motrin) 600 mg Q6H PRN PO 06/16/17 07:30 06/17/17 00:39 (Percocet 5-325 Mg) 1 tab Q4H PRN PO 06/16/17 07:30 06/17/17 05:01 (Percocet 5-325 Mg) 2 tab Q4H PRN PO 06/16/17 07:30 (M-M-R Ii Inj) 0.5 ml ONCE ONCE SQ 06/17/17 16:00 06/17/17 16:01 (Boostrix Inj) 0.5 ml ONCE ONCE IM 06/17/17 16:00 06/17/17 16:01 06/16/17 19:58 (Zofran Inj) 4 mg Q6H PRN IV PUSH 06/16/17 07:30 Assessment/Plan Problem List: (1) Single delivery by section ICD Codes: O82 - Encounter for delivery without indication Status: Acute Assessment and Plan 27 y/o female who is day #2 s/p . -Continue routine care. -Percocet and Motrin PRN pain. -Encouraged OOB. Advised pelvic rest for 6 wks. Will need follow-up appointment for incision check in 1 week. -Re: ctrl, she would like to discuss her options at her follow-up appointment. -Anticipate discharge today pending baby's discharge. dw Dr. Wai MD Discharge Planning Today pending baby's discharge Ziyad Leach MD R2 Jun 17, 2017 06:03
[2017-06-17] MEDS ORDERED: IBUP-232 PO (06:23)
[2017-06-17] MEDS ORDERED: OXYC1TAB63 PO (06:23)
--- NOTE | 2017-06-17 06:23 | HHI.DCPOC ---
Discharge Care Plan Diagnosis: (1) Single delivery by section Report Symptoms to Your Doctor -Temperature above 100.5 degrees -Redness, of incision or excessive or foul smelling drainage -Unusual pain or calf pain -Increased vaginal bleeding -Painful or difficulty urinating -Feelings of extreme sadness or anxiety after 2 weeks Goals to Promote Your Health * To prevent worsening of your condition and complications * To maintain your health at the optimal level Directions to Meet Your Goals Take your medications as prescribed Follow your dietary instruction Follow activity as directed Ensure plenty of rest for recovery Drink fluids for hydration Keep your appointments as scheduled Take your immunizations and boosters as scheduled If your symptoms worsen call your PCP, if no PCP go to Urgent Care Center or Emergency Room Smoking is Dangerous to Your Health. Avoid second hand smoke Call the 24-hour crisis hotline for domestic abuse at Ziyad Leach MD R2 Jun 17, 2017 06:23
[2017-06-17] MEDS ORDERED: PERI PO (06:27)
[2017-06-17] MEDS ORDERED: DOCUSATE SODIUM 50 MG/SENNA 8.6 MG TAB PO PRN (06:30)
[2017-06-17 08:00] VITALS: BP 94/56; PULSE 78; RESP 16; TEMP 98; O2SAT 98
[2017-06-17 09:29] LABS: BASOPHIL % 0.4 % (0.0-2.0); EOSINOPHIL # 0.1 TH/MM3 (0-0.4); EOSINOPHIL % 1.7 % (0.0-4.0); LYMPH % 14.7 % (9.0-44.0); LYMPHOCYTE # 1.2 TH/MM3 (1.0-4.8); MEAN CELL VOLUME 64.3 FL (80.0-100.0); MEAN CORPUSCULAR HEMOGLOBIN 20.2 PG (27.0-34.0); MEAN CORPUSCULAR HGB CONC 31.5 % (32.0-36.0); MEAN PLATELET VOLUME 7.8 FL (7.0-11.0); MONO % 8.3 % (0.0-8.0); MONOCYTE # 0.7 TH/MM3 (0-0.9); NEUT % 74.9 % (16.0-70.0); PLATELET COUNT 199 TH/MM3 (150-450); RED BLOOD COUNT 3.39 MIL/MM3 (4.00-5.30); RED CELL DISTRIBUTION WIDTH 17.7 % (11.6-17.2)
[2017-06-17 09:44] LABS: HEMATOCRIT 21.8 % (35.0-46.0); HEMOGLOBIN 6.9 GM/DL (11.6-15.3)
[2017-06-17] MEDS ORDERED: DIPHTH/TETANUS/ACEL PERTUSSIS (BOOSTER) 0.5 ML VIAL/PFS IM ONE (16:00)
[2017-06-17] MEDS ORDERED: MEASLES, MUMPS, RUBELLA VACCINE 0.5 ML VIAL SQ ONE (16:00)
[2017-06-17 20:00] VITALS: BP 130/75; PULSE 83; RESP 16; TEMP 98.3
[2017-06-18] MEDS: oxyCODONE/ACETAMINOPHEN 5 MG/325 MG TAB PO PRN ×2 (04:02→09:44)
[2017-06-18] MEDS: IBUPROFEN 600 MG TAB PO PRN ×2 (04:03→09:43)
--- NOTE | 2017-06-18 07:28 | HHI.OB ---
Subjective Post Operative Day: 3 Remarks Patient seen and examined this morning. AFVSS overnight. Postoperative day #3. Patient states her pain has been well controlled. She denies any drainage from her incision site. Decreased lochia. Denies dysuria. No breast tenderness. She is feeding the baby via formula. Appetite good. No nausea or vomiting. Endorses flatus. Ambulating well. Denies fevers, calf pain, shortness of breath, or cough. She otherwise has no other complaints or concerns this morning. Objective Vitals/I&O Vital Signs Date Time Temp Pulse Resp B/P (MAP) Pulse Ox O2 Delivery O2 Flow Rate FiO2 06/17/17 20:00 83 130/75 (93) 06/17/17 20:00 98.3 16 06/17/17 08:00 98.0 78 16 94/56 (69) 98 Result Diagram: 06/17/17 09 Objective Remarks GENERAL: Well-nourished, well-developed patient. CARDIOVASCULAR: Regular rate and rhythm without murmurs, gallops, or rubs. RESPIRATORY: Breath sounds equal bilaterally. No accessory muscle use. ABDOMEN/GI: Abdomen soft, non-tender, bowel sounds present. Incision: Clean, dry and intact. Fundus: Firm, non-tender at umbilicus. GENITOURINARY: Light to moderate bleeding. EXTREMITIES: No cyanosis or edema, non-tender, without signs of DVT. Medications and IVs Current Medications Medications (Trade) Dose Ordered Sig/Elayne Route Start Time Stop Time Status Last Admin (Xylocaine 1% Inj (50 ml)) 0.1 ml UNSCH X1 PRN I-DERMAL 06/15/17 11:45 06/18/17 11:44 (Bicitra Liq) 30 ml INTERIOR PAINTER PO 06/15/17 11:45 06/19/17 11:44 (Muri-Lube Oil) 10 ml UNSCH PRN TOPICAL 06/15/17 11:45 Fentanyl/ Bupivacaine HCl 100 ml @ 0 mls/hr TITRATE PRN EPIDURAL 06/15/17 19:30 Cefazolin Sodium/ Dextrose 50 ml @ 100 mls/hr INTERIOR PAINTER IV 06/16/17 00:15 06/20/17 00:14 (Bicitra Liq) 30 ml INTERIOR PAINTER PO 06/16/17 00:45 06/20/17 00:44 (NS Flush) 2 ml BID IV FLUSH 06/16/17 09:00 (NS Flush) 2 ml UNSCH PRN IV FLUSH 06/16/17 07:30 Acetaminophen 100 ml @ 400 mls/hr ONCE IV 06/16/17 07:30 06/18/17 07:44 (Motrin) 600 mg Q6H PRN PO 06/16/17 07:30 06/18/17 04:03 (Percocet 5-325 Mg) 1 tab Q4H PRN PO 06/16/17 07:30 06/17/17 15:56 (Percocet 5-325 Mg) 2 tab Q4H PRN PO 06/16/17 07:30 06/18/17 04:02 (Zofran Inj) 4 mg Q6H PRN IV PUSH 06/16/17 07:30 (Jennifer-Colace) 2 tab Q12H PRN PO 06/17/17 06:30 06/18/17 04:03 Assessment/Plan Problem List: (1) Single delivery by section ICD Codes: O82 - Encounter for delivery without indication Status: Acute Assessment and Plan 27 y/o female who is day #3 s/p . -Continue routine care. -Percocet and Motrin PRN pain. -Incision c/d/i -Encouraged OOB. Advised pelvic rest for 6 wks. Will need follow-up appointment for incision check in 1 week. -Re: ctrl, she would like to discuss her options at her follow-up appointment. -Anticipate discharge today [facility] Discharge Planning Stable for discharge home today pending stable clinical course Bobby Sen MD R2 Jun 18, 2017 07:28
[2017-06-18 08:00] VITALS: BP 117/76; PULSE 87; RESP 20; TEMP 98; O2SAT 100
[2017-06-18] MEDS ORDERED: FERR325T18 PO (09:14)
[2017-06-18] MEDS ORDERED: FERROUS SULFATE 325 MG (65 MG ELEMENTAL IRON) TAB PO SCH (09:15)
== END 2017-06-18 10:36 | disposition home or self-care (01) | DRG 766 ==
LOC: HOBED 10:33 → H2EA 11:40 → H1EA 06-16 01:50
PROVIDERS: ADMIT Obstetrics & Gynecology; ATTEND Obstetrics & Gynecology
PROC: 10D00Z1 Extraction of Products of Conception, Low, Open Approach (ICD-10-PCS; principal; 2017-06-16)
DX: O24.420 Gestational diabetes mellitus in childbirth, diet controlled (principal); O99.52 Diseases of the respiratory system complicating childbirth; J45.909 Unspecified asthma, uncomplicated; O62.1 Secondary uterine inertia; O36.60X0 Maternal care for excessive fetal growth, unspecified trimester, not applicable or unspecified; Z37.0 Single live birth; Z3A.38 38 weeks gestation of pregnancy
CPT/HCPCS: 59025; 80307; 81001; 84112; 85025; 86900; 86901; 87086; 90715; G0481; J0690; J1885; J2370; J2405; J2590; J3010; J7120